=== PATIENT | male | born 1955 | race Caucasian/White ===

== ENCOUNTER 2016-08-22 05:23 | Day surgery (SDC) | payer BC ==
--- NOTE | ~2016-08-22 | EGD ---
EGD REPORT [facility] [address] [place] [address] NAME: LJ JENNINGS : 57 STATUS : REG [facility]#: [id number] AGE: 61 ADM/REG DATE : 08/22/16 MR#: [id number] REPORT SERV DATE: 08/22/16 DICTATED BY: BOB OMALLEY DATE: 08/22/16 REPORT STATUS : Draft [facility]: [facility] DATE: 08/22/16 Endoscopy Center Patient Name: Lj Jennings Date of : 1955 Attending MD: BOB OMALLEY MD Procedure Date No Time: 08/22/2016 Procedure: Colonoscopy Indications: High risk colon cancer surveillance: Personal history of colonic polyps Referring MD: KATHERINE TOPETE Medicines: Monitored Anesthesia Care Complications: No immediate complications. Procedure: Pre-Anesthesia Assessment: - ASA Grade Assessment: III - A patient with severe systemic disease. After I obtained informed consent, the scope was passed under direct vision. Throughout the procedure, the patient's blood pressure, pulse, and oxygen saturations were monitored continuously. The CF [id number] was introduced through the anus and advanced to the terminal ileum, with identification of the appendiceal orifice and IC valve. The colonoscopy was performed without difficulty. The patient tolerated the procedure well. The quality of the bowel preparation was good. Findings: The digital rectal exam was normal. Pertinent negatives include no palpable rectal lesions. The terminal ileum appeared normal. A few diverticula were found in the sigmoid colon. Hemorrhoids were found during retroflexion and were mild. Two polyps were found in the sigmoid colon. The polyps were 8 to 10 mm in size. These polyps were removed with a hot snare. Resection and retrieval were complete. A sessile polyp was found in the rectum. The polyp was 5 mm in size. The polyp was removed with a cold snare. Resection and retrieval were complete. Impression: - The examined portion of the ileum was normal. - Diverticulosis in the sigmoid colon. - Hemorrhoids. - Two 8 to 10 mm polyps in the sigmoid colon. Resected and retrieved. - One 5 mm polyp in the rectum. Resected and retrieved. EGD REPORT [address] [address] NAME: LJ JENNINGS : 57 STATUS [place] [facility] [place] [id number] AGE: 61 ADM/REG DATE : 08/22/16 MR#: [id number] REPORT SERV DATE: 08/22/16 DICTATED BY: BOB OMALLEY DATE: 08/22/16 REPORT STATUS : Draft TRANSCRIBED BY: [employer] DATE: 08/22/16 Recommendation: - Patient has a contact number available for emergencies. The signs and symptoms of potential delayed complications were discussed with the patient. Return to normal activities tomorrow. Written discharge instructions were provided to the patient. - Regular diet. - Continue present medications. - Repeat colonoscopy in 3 - 5 years for surveillance based on pathology results. - Return to GI clinic PRN. Procedure Code(s): --- Professional --- 07933, Colonoscopy, flexible, proximal to splenic flexure; with removal of tumor(s), polyp(s), or other lesion(s) by snare technique Diagnosis Code(s): --- Professional --- K64.9, Unspecified hemorrhoids K57.30, Diverticulosis of large intestine without perforation or abscess without bleeding K62.1, Rectal polyp D12.5, Benign neoplasm of sigmoid colon Z86.010, Personal history of colonic polyps CPT copyright 2013 [employer]. All rights reserved. The codes documented in this report are preliminary and upon medical billing coder review may be revised to meet current compliance requirements. BOB OMALLEY MD 08/22/2016 7:28 AM This report has been signed electronically. Number of Addenda: 0 Note Initiated On: 08/22/2016 6:50 AM Scope Withdrawal Time 0 hours 12 minutes 56 seconds [address] [place] [address]
[~2016-08-22 05:23] MED LIST: APRES50 PO; ASAB PO; CORDARONE PO; COREG12 PO; COREG6 PO; COZ50 PO; CRESTOR5 MG PO; DEMA10T PO; DIOVAN320 MG PO; HYZAAR 50/12.51 TAB PO; HYZAAR1 TAB PO; JENTADUETO 2.51 EACH PO; KDUR20 PO; KLOR-CON M2020 MEQ PO; LANTUS SC; LEVOTHYROXIN100 MCG PO; LEVOTHYROXIN50 MCG PO; NITROSTAT0.4 MG SL; NORCO1 TA1 PO; NORCO1 TA2 PO; NORV5 PO; NOVOPEN SC; PCET PO; TOPXL25 PO; TOUJEO SQ; VICODINTAB PO; VYTORIN 10/20 T1 TAB PO; ZOL50 PO
== END 2016-08-22 23:59 | disposition home or self-care (01) ==
LOC: DMU 05:23
PROVIDERS: Internal Medicine Gastroenterology
PROC: 0DBP8ZZ Excision of Rectum, Via Natural or Artificial Opening Endoscopic (ICD-10-PCS; 2016-08-22)
PROC: 0DBN8ZZ Excision of Sigmoid Colon, Via Natural or Artificial Opening Endoscopic (ICD-10-PCS; principal; 2016-08-22 07:00)
DX: K63.5 Polyp of colon (principal); K62.1 Rectal polyp; K57.30 Diverticulosis of large intestine without perforation or abscess without bleeding; K64.9 Unspecified hemorrhoids; I25.10 Atherosclerotic heart disease of native coronary artery without angina pectoris; I10 Essential (primary) hypertension; E78.5 Hyperlipidemia, unspecified; E11.9 Type 2 diabetes mellitus without complications; Z95.1 Presence of aortocoronary bypass graft; Z86.010 Personal history of colon polyps; Z79.4 Long term (current) use of insulin; Z79.899 Other long term (current) drug therapy
CPT/HCPCS: 82962; 88305